=== PATIENT | male | born 1980 ===

== ENCOUNTER 2022-09-17 05:45 | Day surgery (SDC) | payer OTHER ==
[~2022-09-17] VITALS: Ht 180.3 cm; Wt 74.4 kg
[2022-09-17] MEDS ORDERED: PERCOCET 5-3251 EACH PO (09:09)
== END 2022-09-17 13:00 | disposition home or self-care (01) ==
LOC: CIR.AMB 05:45
PROVIDERS: ATTEND Surgery
DX: K64.8 Other hemorrhoids (principal); K64.4 Residual hemorrhoidal skin tags; K62.89 Other specified diseases of anus and rectum; F12.90 Cannabis use, unspecified, uncomplicated; Z20.822 Contact with and (suspected) exposure to COVID-19